=== PATIENT | female | born 1985 | race Caucasian/White ===

== ENCOUNTER 2022-07-16 08:21 | Emergency (ER) | payer MEDICAID ==
[~2022-07-16] VITALS: Ht 162.6 cm; Wt 78.0 kg
[2022-07-16 08:25] VITALS: BP 132/92
[2022-07-16] MEDS ORDERED: ACETAMINOPHEN 325MG TABLET PO STA (09:29)
[2022-07-16 10:26] LABS: BASOPHILS % 0.4 % (0.0-2.0); EOSINOPHILS % 0.2 % (0.0-5.0); HEMATOCRIT. 41.6 % (36.0-48.0); HEMOGLOBIN. 13.9 g/dL (12.0-16.0); LYMPHOCYTES % 8.3 % (20.0-50.0); MEAN CORPUSCULAR HEMOGLOBIN 30.8 pg (28.0-32.0); MEAN CORPUSCULAR VOLUME 92.1 fL (81.0-99.0); MONOCYTES % 3.9 % (2.0-8.0); NEUTROPHILS % 87.2 % (40.0-76.0); PLATELET 317 x1000/uL (130-400); RED BLOOD CELL COUNT 4.52 mill/uL (4.2-5.4); RED CELL DISTRIBUTION WIDTH 13.7 % (11.6-14.6)
[2022-07-16 10:34] LABS: CLARITY URINE CLOUDY (CLEAR); COLOR URINE YELLOW (YELLOW); KETONES URINE 1+ (NEGATIVE); LEUKOCYTE ESTERASE URINE NEGATIVE (NEGATIVE); NITRITE URINE NEGATIVE (NEGATIVE); OCCULT BLOOD URINE NEGATIVE (NEGATIVE); PH URINE 8.5 (4.5-8.0); PROTEIN URINE NEGATIVE (NEGATIVE); SPECIFIC GRAVITY URINE 1.018 (1.005-1.030); UROBILINOGEN URINE 0.2 E.U./dL (0.2-1.0)
[2022-07-16 11:10] LABS: CHLORIDE 105 mEq/L (98-107)
[2022-07-16] MEDS ORDERED: TRANEXAMIC ACID 1,000 MG/10 ML IV ONE (13:00)
[2022-07-16] MEDS ORDERED: SODIUM CHLORIDE 0.9% 1,000 ML IV ONE (13:00)
[2022-07-16] MEDS: SODIUM CHLORIDE 0.9% IV SCH ×2 (14:24→14:30)
[2022-07-16] MEDS: TRANEXAMIC ACID IV SCH ×2 (14:24→14:30)
== END 2022-07-16 16:28 | disposition home or self-care (01) ==
LOC: ER 08:21
DX: O26.892 Other specified pregnancy related conditions, second trimester (principal); R10.30 Lower abdominal pain, unspecified; Z3A.16 16 weeks gestation of pregnancy
CPT/HCPCS: 36415; 76805; 80053; 81003; 81025; 85025; 85379; 86850; 86900; 86901; 99284; J7050